=== PATIENT | male | born 1935 | race Caucasian/White ===

== ENCOUNTER 2018-08-07 10:42 | Day surgery (SDC) | payer MEDICARE, OTHER ==
[~2018-08-07 10:42] MED LIST: FENTANYL 100MCG/2ML SOL ONE; MIDAZOLAM 2 MG/2 ML SOL ONE
[2018-08-07] MEDS ORDERED: ACETAZOLAMIDE 250 MG PO ONE (10:48)
[2018-08-07] MEDS: TETRACAINE HCL 0.5 % 1 DROP SOL ONE ×3 (11:01→12:01)
[2018-08-07] MEDS: CYCLOPENTOLATE 1% SOL ONE ×2 (11:02→11:16)
[2018-08-07] MEDS: KETOROLAC 0.5% OPTH 60 DROP SOL ONE ×2 (11:02→11:16)
[2018-08-07] MEDS: PHENYLEPHRINE HCL 10% OPHTHAL SOL ONE ×2 (11:02→11:15)
[2018-08-07] MEDS ORDERED: LIDOCAINE HCL 1% MPF 30 SOL ONE (11:57)
[2018-08-07] MEDS ORDERED: POVIDONE IODINE 5% SOL ONE (11:57)
[2018-08-07] MEDS ORDERED: IMPRIMIS ONE (11:57)
[2018-08-07] MEDS ORDERED: BSS 500 ML 500 ML IR ONE (11:57)
[2018-08-07 12:31] VITALS: BP 155/89; PULSE 87; RESP 20; TEMP 97.5; O2SAT 94
== END 2018-08-07 12:45 | disposition home or self-care (01) | DRG 125 ==
LOC: SURG 10:42
PROVIDERS: ATTEND Ophthalmology
DX: H25.89 Other age-related cataract (principal)
CPT/HCPCS: J2250; J3010; A9270-GY; J2001

== ENCOUNTER 2018-08-23 09:56 | Inpatient (IN) | payer MEDICARE, OTHER ==
[2018-08-23] MEDS ORDERED: ALBUTEROL NEB SOL 2.5MG/3ML 1 VIAL SOL NEB PRN (10:13)
[2018-08-23] MEDS ORDERED: CEFTRIAXONE 1 GM PDS ONE ×2 (10:25→21:51)
[2018-08-23] MEDS: ALBUTEROL/IPRATROPIUM 1 VIAL SOL INH SCH ×4 (10:34→21:29)
[2018-08-23] MEDS: AZITHROMYCIN 250 MG TAB PO SCH (10:38)
[2018-08-23] MEDS: SODIUM CHLORIDE 0.9% FLUSH 10 ML SOL IV SCH ×2 (10:49→21:28)
[2018-08-23] MEDS ORDERED: CEFTRIAXONE 1 GM PDS 1 GM in SODIUM CHLORIDE 0.9% 50 ML 50 ML IV ONE (11:00)
[2018-08-23] MEDS ORDERED: CEFTRIAXONE 1 GM PDS 1 GM in SODIUM CHLORIDE 0.9% 50 ML 50 ML IV SCH (13:15)
[2018-08-23] MEDS: SOLUMEDROL 125 MG/2 ML 125 MG/2 ML PDS IV SCH ×2 (14:06→21:28)
[2018-08-23] MEDS: ENOXAPARIN 30 MG SOL SC SCH (14:16)
[2018-08-23] MEDS: SUCRALFATE 1 GM TAB PO SCH ×2 (16:20→21:27)
[2018-08-23] MEDS ORDERED: NAPROXEN 500 MG TAB ONE (21:22)
[2018-08-23] MEDS: METOPROLOL TARTRATE 25 MG TAB PO SCH (21:27)
[2018-08-23] MEDS: NAPROXEN 500 MG TAB PO SCH (21:32)
[2018-08-23] MEDS ORDERED: SODIUM CHLORIDE 0.9% 50 ML 50 ML IV ONE (21:51)
[2018-08-23] MEDS: CEFTRIAXONE 1 GM PDS 1 GM in SODIUM CHLORIDE 0.9% 50 ML 50 ML IV SCH (22:00)
[2018-08-24] MEDS: SODIUM CHLORIDE 0.9% FLUSH 10 ML SOL IV SCH ×3 (06:12→13:37)
[2018-08-24] MEDS: SUCRALFATE 1 GM TAB PO SCH ×3 (06:13→16:24)
[2018-08-24] MEDS ORDERED: CEFTRIAXONE 1 GM PDS ONE ×2 (08:54→18:29)
[2018-08-24] MEDS ORDERED: SODIUM CHLORIDE 0.9% 50 ML 50 ML IV ONE ×2 (08:54→18:29)
[2018-08-24] MEDS: CEFTRIAXONE 1 GM PDS 1 GM in SODIUM CHLORIDE 0.9% 50 ML 50 ML IV SCH (09:00)
[2018-08-24] MEDS ORDERED: PANTOPRAZOLE SODIUM 40 MG ECT PO SCH (09:00)
[2018-08-24] MEDS ORDERED: LOSARTAN POTASSIUM 50 MG TAB PO SCH (09:00)
[2018-08-24] MEDS: AZITHROMYCIN 250 MG TAB PO SCH (10:10)
[2018-08-24] MEDS: SOLUMEDROL 125 MG/2 ML 125 MG/2 ML PDS IV SCH ×2 (10:10→13:37)
[2018-08-24] MEDS: ALBUTEROL/IPRATROPIUM 1 VIAL SOL INH SCH ×3 (10:11→16:27)
[2018-08-24] MEDS: METOPROLOL TARTRATE 25 MG TAB PO SCH (10:11)
[2018-08-24] MEDS: ENOXAPARIN 30 MG SOL SC SCH (10:16)
[2018-08-24] MEDS ORDERED: NAPROXEN 500 MG TAB ONE (12:20)
[2018-08-24] MEDS: NAPROXEN 500 MG TAB PO SCH (12:21)
[2018-08-24 16:38] VITALS: BP 148/71; PULSE 96; RESP 18; TEMP 97.6; O2SAT 99
[2018-08-24] MEDS ORDERED: CEFTRIAXONE 1 GM PDS 1 GM in SODIUM CHLORIDE 0.9% 50 ML 50 ML IV SCH (19:00)
[2018-08-24] MEDS ORDERED: FAMOTIDINE 20 MG TAB PO SCH (21:00)
== END 2018-08-24 19:25 | disposition home or self-care (01) | DRG 194 ==
LOC: ACUTE CARE 09:59
PROVIDERS: ADMIT Family Medicine; ATTEND Family Medicine
DX: J18.1 Lobar pneumonia, unspecified organism (principal); J44.1 Chronic obstructive pulmonary disease with (acute) exacerbation; I10 Essential (primary) hypertension; R06.02 Shortness of breath; R05 Cough
CPT/HCPCS: 87040; 94150; 94640; 94664; J0696; J2930; J7613; A9270-GY; J1650